=== PATIENT | male | born 1970 ===

== ENCOUNTER 2021-08-08 19:42 | Inpatient (IN) ==
[2021-08-08] MEDS ORDERED: ONDANSETRON 4 MG/2 ML VIAL IV STA (23:13)
[2021-08-08] MEDS ORDERED: KETOROLAC 30 MG/1 ML VIAL IV STA (23:13)
[2021-08-09] MEDS ORDERED: SODIUM CHLORIDE 0.9% 1,000 ML IV STA (00:14)
[2021-08-09 00:32] LABS: Albumin 3.4 G/DL (3.4-5.0); Bilirubin,Total 1.3 MG/DL (0.20-1.00); Calcium 9.7 MG/DL (8.5-10.1); Osmolality,Calculated 267.1 MOS/KG (273-304); Potassium 3.7 MMOL/L (3.5-5.1); Total Protein 7.3 G/DL (6.4-8.2)
[2021-08-09 00:49] LABS: Basophils % 0.1 % (0.0-0.8); Hematocrit 44.9 VOL% (42.0-52.0); Hemoglobin 14.5 GM/DL (14.0-18.0); Immature Granulocytes % 0.6 %; Immature Granulocytes Absolute 0.05 #; Lymphocytes # 1.2 10*3/uL (1.4-4.0); Lymphocytes % 14.3 % (21.2-54.2); Mean Corpuscular HGB Conc 32.3 GM/DL (32-36); Mean Platelet Volume 12.9 FL (9.6-12.0); NRBC # 0.02 10*3/uL; Platelet Count 113 T/CUMM (130-400); Red Blood Count 5.22 MC/CUMM (3.8-5.5); Red Cell Distribution Width 15.5 % (9.3-17.3); White Blood Count 8.1 T/CUMM (4-12)
[2021-08-09 01:15] LABS: Hyaline Casts,Urine 1 /LPF (0-3); Mucus,Urine Occasional /LPF (Occasional); Squamous Epithelial Cell,Urine Occasional /HPF (0-10)
[2021-08-09 01:16] LABS: Bilirubin,Urine Moderate mg/dL (Negative); Blood, Urine Negative (Negative); Glucose,Urine (UA) Negative (Negative); Ketones,Urine 40 mg/dL (Negative); Nitrite,Urine Negative (Negative); Protein,Urine Negative (Negative); Urine Appearance Clear (Clear); Urine Color Yellow (Yellow); Urine pH 5.5 (4.5-8.0)
[2021-08-09] MEDS ORDERED: SIMETHICONE CHEW 125 MG TABLET PO PRN (03:14)
[2021-08-09] MEDS ORDERED: ACETAMINOPHEN 325 MG TABLET PO PRN (03:14)
[2021-08-09] MEDS ORDERED: GLUCAGON 1 MG VIAL IM PRN (03:14)
[2021-08-09] MEDS ORDERED: DEXTROSE 10% 250 ML BAG IV PRN (03:52)
[2021-08-09 05:09] LABS: Hepatitis B Core IgM Quant 0.15 Index; Hepatitis B Surface Ag Quant < 0.10 Index; Hepatitis B Surface Ag Result Non-Reactive (NonReactive); Hepatitis C Virus Ab Quant < 0.02 Index; Hepatitis C Virus Ab Result Non-Reactive (NonReactive)
[2021-08-09] MEDS: SODIUM CHLORIDE 0.9% 1,000 ML IV SCH ×3 (05:18→21:26)
[2021-08-09] MEDS: ENOXAPARIN 40 MG/0.4 ML SYRINGE SUBCUT SCH (05:20)
[2021-08-09 07:16] LABS: Basophils % 0.3 % (0.0-0.8); Hematocrit 50.7 VOL% (42.0-52.0); Hemoglobin 16.1 GM/DL (14.0-18.0); Immature Granulocytes % 0.7 %; Immature Granulocytes Absolute 0.05 #; Lymphocytes # 1.2 10*3/uL (1.4-4.0); Lymphocytes % 16.6 % (21.2-54.2); Mean Corpuscular HGB Conc 31.8 GM/DL (32-36); Mean Corpuscular Volume 86.8 FL (87-102); Mean Platelet Volume 12.1 FL (9.6-12.0); Monocytes % 9.3 % (1.7-12.7); NRBC # 0.04 10*3/uL; Neutrophils % 73.1 % (38.7-73.9); Platelet Count 112 T/CUMM (130-400); Red Blood Count 5.84 MC/CUMM (3.8-5.5); Red Cell Distribution Width 17.7 % (9.3-17.3); White Blood Count 7.1 T/CUMM (4-12)
[2021-08-09 07:26] LABS: Bilirubin,Direct 0.1 MG/DL (0.0-0.20); Bilirubin,Total 1.1 MG/DL (0.20-1.00); Risk Ratio 2.54; Total Protein 6.9 G/DL (6.4-8.2); VLDL Cholesterol 17.6 MG/DL
[2021-08-09 07:36] LABS: INR 1.4; PT Patient Result 14.9 SECS (10.5-12.0); Partial Thromboplastin Time 34.2 SECS (23.8-32.1)
[2021-08-09 08:51] LABS: Folate 7.46 NG/ML (5.38-24.0); Vitamin B12 680 PG/ML (211-911)
[2021-08-09 08:53] LABS: Sedimentation Rate-Westergren 25 MM/HR (0-15)
[2021-08-09] MEDS ORDERED: PANTOPRAZOLE 40 MG TABLET PO SCH (09:00)
[2021-08-09 09:36] LABS: Hypochromia Slight; Microcytosis Slight; Platelet Estimate Adequate; Polychromasia Slight
[2021-08-09] MEDS ORDERED: MAGNESIUM SULF RIDER 2 GM/50 ML PREMIX IV ONE (09:44)
[2021-08-09] MEDS: DOCUSATE SODIUM 100 MG CAPSULE PO SCH ×2 (10:12→21:30)
[2021-08-09] MEDS: ONDANSETRON 4 MG/2 ML VIAL IV PRN ×2 (13:11→21:27)
[2021-08-09] MEDS ORDERED: SODIUM CHLORIDE 0.9% 500 ML IV ONE (19:01)
[2021-08-09] MEDS: PANTOPRAZOLE 40 MG VIAL IV SCH (21:27)
[2021-08-10 07:12] LABS: Basophils % 0.4 % (0.0-0.8); Eosinophils % 0.4 % (0.00-10.9); Hematocrit 37.8 VOL% (42.0-52.0); Immature Granulocytes % 0.7 %; Immature Granulocytes Absolute 0.04 #; Lymphocytes # 1.2 10*3/uL (1.4-4.0); Mean Corpuscular HGB Conc 32.3 GM/DL (32-36); Mean Corpuscular Volume 88.1 FL (87-102); Monocytes % 10.9 % (1.7-12.7); NRBC # 0.03 10*3/uL; Neutrophils % 65.6 % (38.7-73.9); Platelet Count 124 T/CUMM (130-400); Red Cell Distribution Width 15.9 % (9.3-17.3); White Blood Count 5.4 T/CUMM (4-12)
[2021-08-10 07:14] LABS: Hemoglobin 12.2 GM/DL (14.0-18.0); Red Blood Count 4.29 MC/CUMM (3.8-5.5)
[2021-08-10 07:32] LABS: Albumin 2.6 G/DL (3.4-5.0); Bilirubin,Total 1.3 MG/DL (0.20-1.00); Calcium 8.3 MG/DL (8.5-10.1); Osmolality,Calculated 274.5 MOS/KG (273-304); Total Protein 5.9 G/DL (6.4-8.2)
[2021-08-10 07:36] LABS: Anisocytosis 1+; Burr Cells Few; Platelet Estimate Adequate
[2021-08-10 07:37] LABS: Macrocytosis Slight
[2021-08-10] MEDS: LACTATED RINGERS 1,000 ML IV SCH (08:46)
[2021-08-10] MEDS ORDERED: ETOMIDATE 20 MG/10 ML VIAL IV ONE (08:46)
[2021-08-10] MEDS ORDERED: LIDOCAINE 2% 5 ML VIAL ONE (08:46)
[2021-08-10] MEDS ORDERED: propofoL 200 MG/20 ML VIAL IV ONE (08:46)
[2021-08-10] MEDS: DOCUSATE SODIUM 100 MG CAPSULE PO SCH ×2 (09:05→22:40)
[2021-08-10] MEDS: ENOXAPARIN 40 MG/0.4 ML SYRINGE SUBCUT SCH (10:10)
[2021-08-10] MEDS: PANTOPRAZOLE 40 MG VIAL IV SCH ×2 (10:10→22:19)
[2021-08-10] MEDS: SODIUM CHLORIDE 0.9% 1,000 ML IV SCH ×3 (10:10→15:26)
[2021-08-10] MEDS: ONDANSETRON 4 MG/2 ML VIAL IV PRN ×2 (10:15→23:43)
[2021-08-10] MEDS: POTASSIUM CHLORIDE RIDER 10 MEQ/100 ML PREMIX IV PRN ×5 (11:25→15:54)
[2021-08-10] MEDS ORDERED: PROMETHAZINE 25 MG SUPP RECTAL ONE (12:00)
[2021-08-10] MEDS ORDERED: PROMETHAZINE 12.5 MG SUPP RECTAL ONE (12:00)
[2021-08-11] MEDS: hydrALAZINE 20 MG/1 ML VIAL IV PRN (00:35)
[2021-08-11] MEDS ORDERED: HYDROmorphone 1 MG/1 ML SYRINGE IV ONE (01:52)
[2021-08-11] MEDS ORDERED: PROMETHAZINE INJ 25 MG in SODIUM CHLORIDE 0.9% 50 ML IV PRN (01:52)
[2021-08-11 02:44] LABS: Basophils % 0.5 % (0.0-0.8); Eosinophils % 0.5 % (0.00-10.9); Hematocrit 39.4 VOL% (42.0-52.0); Hemoglobin 12.6 GM/DL (14.0-18.0); Immature Granulocytes % 0.8 %; Immature Granulocytes Absolute 0.05 #; Lymphocytes # 1.7 10*3/uL (1.4-4.0); Lymphocytes % 26.3 % (21.2-54.2); Mean Corpuscular Volume 87.4 FL (87-102); Mean Platelet Volume 11.6 FL (9.6-12.0); Monocytes % 11.6 % (1.7-12.7); NRBC # 0.02 10*3/uL; Neutrophils % 60.3 % (38.7-73.9); Platelet Count 171 T/CUMM (130-400); Red Blood Count 4.51 MC/CUMM (3.8-5.5); Red Cell Distribution Width 15.9 % (9.3-17.3); White Blood Count 6.6 T/CUMM (4-12)
[2021-08-11 02:53] LABS: Bilirubin,Total 1.1 MG/DL (0.20-1.00); Calcium 8.3 MG/DL (8.5-10.1); Osmolality,Calculated 266.1 MOS/KG (273-304); Potassium 2.9 MMOL/L (3.5-5.1); Total Protein 6.4 G/DL (6.4-8.2)
[2021-08-11] MEDS ORDERED: MAGNESIUM SULF RIDER 2 GM/50 ML PREMIX IV PRN (02:56)
[2021-08-11] MEDS ORDERED: MAGNESIUM SULF RIDER 4 GM/100 ML PREMIX IV PRN (02:56)
[2021-08-11] MEDS: ENOXAPARIN 40 MG/0.4 ML SYRINGE SUBCUT SCH (09:57)
[2021-08-11] MEDS: SODIUM CHLORIDE 0.9% 1,000 ML IV SCH ×2 (09:57→20:30)
[2021-08-11] MEDS: PANTOPRAZOLE 40 MG VIAL IV SCH ×2 (09:57→20:30)
[2021-08-11] MEDS: LACTATED RINGERS 1,000 ML IV SCH (09:57)
[2021-08-11] MEDS: DOCUSATE SODIUM 100 MG CAPSULE PO SCH ×2 (09:57→20:30)
[2021-08-11] MEDS: POTASSIUM CHLORIDE RIDER 10 MEQ/100 ML PREMIX IV PRN ×5 (10:32→15:40)
[2021-08-12 07:01] LABS: Albumin 2.5 G/DL (3.4-5.0); Bilirubin,Total 1.2 MG/DL (0.20-1.00); Calcium 8.2 MG/DL (8.5-10.1); Osmolality,Calculated 263.2 MOS/KG (273-304); Potassium 3.8 MMOL/L (3.5-5.1); Total Protein 5.5 G/DL (6.4-8.2)
[2021-08-12] MEDS: LACTATED RINGERS 1,000 ML IV SCH (07:28)
[2021-08-12] MEDS: SODIUM CHLORIDE 0.9% 1,000 ML IV SCH ×2 (10:17→21:42)
[2021-08-12] MEDS: DOCUSATE SODIUM 100 MG CAPSULE PO SCH ×2 (10:18→21:42)
[2021-08-12] MEDS: ENOXAPARIN 40 MG/0.4 ML SYRINGE SUBCUT SCH (10:18)
[2021-08-12] MEDS: PANTOPRAZOLE 40 MG VIAL IV SCH ×2 (10:18→21:42)
[2021-08-12 10:38] LABS: Basophils % 0.6 % (0.0-0.8); Eosinophils % 0.6 % (0.00-10.9); Hematocrit 39.7 VOL% (42.0-52.0); Immature Granulocytes % 0.4 %; Immature Granulocytes Absolute 0.02 #; Lymphocytes # 1.2 10*3/uL (1.4-4.0); Lymphocytes % 25.1 % (21.2-54.2); Mean Corpuscular HGB Conc 32.7 GM/DL (32-36); Mean Corpuscular Volume 86.3 FL (87-102); Mean Platelet Volume 12.1 FL (9.6-12.0); Monocytes % 8.8 % (1.7-12.7); Neutrophils % 64.5 % (38.7-73.9); Platelet Count 99 T/CUMM (130-400); Red Cell Distribution Width 15.9 % (9.3-17.3); White Blood Count 4.7 T/CUMM (4-12)
[2021-08-12 10:56] LABS: Platelet Estimate Decreased
[2021-08-12] MEDS: ONDANSETRON 4 MG/2 ML VIAL IV PRN (21:42)
[2021-08-13 05:19] LABS: Basophils % 0.6 % (0.0-0.8); Eosinophils # 0.1 10*3/uL (0.0-0.87); Eosinophils % 1.3 % (0.00-10.9); Hematocrit 38.4 VOL% (42.0-52.0); Hemoglobin 12.4 GM/DL (14.0-18.0); Immature Granulocytes % 1.3 %; Immature Granulocytes Absolute 0.06 #; Lymphocytes # 1.5 10*3/uL (1.4-4.0); Lymphocytes % 30.3 % (21.2-54.2); Mean Corpuscular HGB Conc 32.3 GM/DL (32-36); Mean Corpuscular Volume 85.9 FL (87-102); Mean Platelet Volume 11.7 FL (9.6-12.0); Monocytes % 10.4 % (1.7-12.7); NRBC # 0.02 10*3/uL; Neutrophils % 56.1 % (38.7-73.9); Platelet Count 157 T/CUMM (130-400); Red Blood Count 4.47 MC/CUMM (3.8-5.5); Red Cell Distribution Width 15.7 % (9.3-17.3); White Blood Count 4.8 T/CUMM (4-12)
[2021-08-13 05:43] LABS: Albumin 2.7 G/DL (3.4-5.0); Bilirubin,Total 1.6 MG/DL (0.20-1.00); Calcium 8.7 MG/DL (8.5-10.1); Osmolality,Calculated 261.4 MOS/KG (273-304); Potassium 3.5 MMOL/L (3.5-5.1); Total Protein 5.9 G/DL (6.4-8.2)
[2021-08-13] MEDS: ONDANSETRON 4 MG/2 ML VIAL IV PRN (07:15)
[2021-08-13] MEDS: hydrALAZINE 20 MG/1 ML VIAL IV PRN (07:15)
[2021-08-13] MEDS ORDERED: MAGNESIUM SULF RIDER 4 GM/100 ML PREMIX IV ONE (08:00)
[2021-08-13] MEDS: PANTOPRAZOLE 40 MG VIAL IV SCH (09:37)
[2021-08-13] MEDS: LACTATED RINGERS 1,000 ML IV SCH (10:11)
[2021-08-13] MEDS: DOCUSATE SODIUM 100 MG CAPSULE PO SCH ×2 (10:12→20:38)
[2021-08-13] MEDS: HYDROmorphone 1 MG/1 ML SYRINGE IV PRN (10:39)
[2021-08-13] MEDS: SODIUM CHLORIDE 0.9% 1,000 ML IV SCH ×2 (12:28→13:52)
[2021-08-13] MEDS: PIPERACILLIN/TAZOBACTAM 3,375 MG in SODIUM CHLORIDE 0.9% 100 ML IV SCH (13:53)
[2021-08-13] MEDS: ZIPRASIDONE 20 MG CAPSULE PO SCH (20:38)
[2021-08-14] MEDS ORDERED: MORPHINE 2 MG/1 ML SYRINGE IM ONE (00:50)
[2021-08-14] MEDS: PIPERACILLIN/TAZOBACTAM 3,375 MG in SODIUM CHLORIDE 0.9% 100 ML IV SCH ×4 (00:58→23:16)
[2021-08-14] MEDS: PANTOPRAZOLE 40 MG VIAL IV SCH ×3 (00:59→21:02)
[2021-08-14 07:24] LABS: Basophils % 0.4 % (0.0-0.8); Eosinophils # 0.1 10*3/uL (0.0-0.87); Eosinophils % 1.5 % (0.00-10.9); Hematocrit 40.3 VOL% (42.0-52.0); Hemoglobin 12.9 GM/DL (14.0-18.0); Immature Granulocytes % 0.4 %; Immature Granulocytes Absolute 0.02 #; Lymphocytes # 1.2 10*3/uL (1.4-4.0); Lymphocytes % 24.6 % (21.2-54.2); Mean Corpuscular Volume 85.9 FL (87-102); Mean Platelet Volume 10.8 FL (9.6-12.0); Monocytes % 7.6 % (1.7-12.7); NRBC # 0.02 10*3/uL; Neutrophils % 65.5 % (38.7-73.9); Platelet Count 183 T/CUMM (130-400); Red Blood Count 4.69 MC/CUMM (3.8-5.5); White Blood Count 4.8 T/CUMM (4-12)
[2021-08-14 07:37] LABS: PT Patient Result 11.5 SECS (10.5-12.0)
[2021-08-14 07:42] LABS: Albumin 2.7 G/DL (3.4-5.0); Bilirubin,Total 1.5 MG/DL (0.20-1.00); Calcium 8.6 MG/DL (8.5-10.1); Osmolality,Calculated 263.2 MOS/KG (273-304); Potassium 3.1 MMOL/L (3.5-5.1); Total Protein 6.4 G/DL (6.4-8.2)
[2021-08-14] MEDS ORDERED: INDOMETHACIN SUPP 50 MG SUPP RECTAL ONE (08:00)
[2021-08-14] MEDS: HYDROmorphone 1 MG/1 ML SYRINGE IV PRN (09:25)
[2021-08-14] MEDS: SPIRONOLACTONE 25 MG TABLET PO SCH (09:42)
[2021-08-14] MEDS: METOPROLOL SUCCINATE XL 100 MG TABLET PO SCH (09:43)
[2021-08-14] MEDS: OXYBUTYNIN XL 10 MG TABLET PO SCH (09:43)
[2021-08-14] MEDS: MAGNESIUM OXIDE 400 MG TABLET PO SCH (09:43)
[2021-08-14] MEDS: DOCUSATE SODIUM 100 MG CAPSULE PO SCH ×2 (09:43→21:01)
[2021-08-14] MEDS: ZIPRASIDONE 20 MG CAPSULE PO SCH ×3 (09:43→22:24)
[2021-08-14] MEDS: SODIUM CHLORIDE 0.9% 1,000 ML IV SCH ×4 (09:44→23:21)
[2021-08-14] MEDS: LACTATED RINGERS 1,000 ML IV SCH ×2 (11:39→13:46)
[2021-08-14] MEDS ORDERED: SEVOFLURANE 1 UNIT/15 MINUTE INH ONE (11:59)
[2021-08-14] MEDS ORDERED: ONDANSETRON 4 MG/2 ML VIAL ONE (11:59)
[2021-08-14] MEDS ORDERED: ROCURONIUM 50 MG/5 ML VIAL IV ONE (11:59)
[2021-08-14] MEDS ORDERED: fentaNYL 100 MCG/2 ML VIAL ONE (11:59)
[2021-08-14] MEDS ORDERED: propofoL 200 MG/20 ML VIAL IV ONE (11:59)
[2021-08-14] MEDS ORDERED: LIDOCAINE 2% 5 ML VIAL ONE (11:59)
[2021-08-14] MEDS ORDERED: MIDAZOLAM 2 MG/2 ML VIAL ONE (12:02)
[2021-08-14] MEDS ORDERED: METOPROLOL TARTRATE 5 MG/5 ML VIAL IV ONE (12:34)
[2021-08-14] MEDS ORDERED: PHENYLEPHRINE 1 MG/10 ML SYRINGE IV ONE ×2 (12:40→12:41)
[2021-08-14] MEDS ORDERED: PHENYLEPHRINE 10 MG/1 ML VIAL IV ONE (12:44)
[2021-08-14] MEDS ORDERED: SODIUM CHLORIDE 0.9% 250 ML IV ONE (12:45)
[2021-08-14] MEDS ORDERED: SUGAMMADEX 200 MG/2 ML VIAL IV ONE (12:50)
[2021-08-14] MEDS ORDERED: GLUCAGON 1 MG VIAL ONE (13:03)
[2021-08-14] MEDS: POTASSIUM CHLORIDE RIDER 10 MEQ/100 ML PREMIX IV PRN ×4 (15:55→21:22)
[2021-08-15] MEDS: SODIUM CHLORIDE 0.9% 1,000 ML IV SCH ×2 (06:52→15:12)
[2021-08-15] MEDS: PIPERACILLIN/TAZOBACTAM 3,375 MG in SODIUM CHLORIDE 0.9% 100 ML IV SCH ×3 (08:50→23:48)
[2021-08-15] MEDS: PANTOPRAZOLE 40 MG VIAL IV SCH ×2 (08:51→20:40)
[2021-08-15] MEDS: MAGNESIUM OXIDE 400 MG TABLET PO SCH (08:51)
[2021-08-15] MEDS: METOPROLOL SUCCINATE XL 100 MG TABLET PO SCH (08:51)
[2021-08-15] MEDS: DOCUSATE SODIUM 100 MG CAPSULE PO SCH ×2 (08:51→20:36)
[2021-08-15] MEDS: SPIRONOLACTONE 25 MG TABLET PO SCH (08:51)
[2021-08-15] MEDS: OXYBUTYNIN XL 10 MG TABLET PO SCH (08:51)
[2021-08-15] MEDS: ZIPRASIDONE 20 MG CAPSULE PO SCH ×2 (08:51→20:36)
[2021-08-15 11:50] LABS: Basophils % 0.4 % (0.0-0.8); Eosinophils % 0.3 % (0.00-10.9); Hemoglobin 13.6 GM/DL (14.0-18.0); Immature Granulocytes % 0.7 %; Immature Granulocytes Absolute 0.05 #; Lymphocytes # 0.7 10*3/uL (1.4-4.0); Lymphocytes % 9.8 % (21.2-54.2); Mean Corpuscular HGB Conc 31.6 GM/DL (32-36); Mean Platelet Volume 10.9 FL (9.6-12.0); Monocytes % 6.4 % (1.7-12.7); NRBC # 0.06 10*3/uL; Neutrophils % 82.4 % (38.7-73.9); Platelet Count 191 T/CUMM (130-400); Red Blood Count 4.94 MC/CUMM (3.8-5.5); Red Cell Distribution Width 16.6 % (9.3-17.3); White Blood Count 7.4 T/CUMM (4-12)
[2021-08-15 12:42] LABS: Albumin 2.6 G/DL (3.4-5.0); Bilirubin,Total 4.4 MG/DL (0.20-1.00); Osmolality,Calculated 263.4 MOS/KG (273-304); Potassium 4.4 MMOL/L (3.5-5.1); Total Protein 6.6 G/DL (6.4-8.2)
[2021-08-15] MEDS: LACTATED RINGERS 1,000 ML IV SCH (19:50)
[2021-08-16] MEDS: SODIUM CHLORIDE 0.9% 1,000 ML IV SCH ×3 (04:42→20:33)
[2021-08-16 06:25] LABS: Alanine Aminotransferase 339 U/L (16-61); Albumin 2.1 G/DL (3.4-5.0); Alkaline Phosphatase 88 U/L (45-117); Aspartate Amino Transferase 363 U/L (0-37); Blood Urea Nitrogen 12 MG/DL (7-18); Calcium 8.3 MG/DL (8.5-10.1); Carbon Dioxide 20 MMOL/L (21-32); Estimated Glom Filtration Rate 83 ML/MIN; Glucose 101 MG/DL (74-106); Osmolality,Calculated 269.1 MOS/KG (273-304); Potassium 4.9 MMOL/L (3.5-5.1); Sodium 135 MMOL/L (136-145); Total Protein 5.8 G/DL (6.4-8.2)
[2021-08-16] MEDS: PIPERACILLIN/TAZOBACTAM 3,375 MG in SODIUM CHLORIDE 0.9% 100 ML IV SCH ×3 (08:10→23:58)
[2021-08-16] MEDS: LACTATED RINGERS 1,000 ML IV SCH ×2 (08:10→08:22)
[2021-08-16] MEDS: METOPROLOL SUCCINATE XL 100 MG TABLET PO SCH (09:58)
[2021-08-16] MEDS: DOCUSATE SODIUM 100 MG CAPSULE PO SCH ×3 (09:58→20:35)
[2021-08-16] MEDS: OXYBUTYNIN XL 10 MG TABLET PO SCH (09:59)
[2021-08-16] MEDS: MAGNESIUM OXIDE 400 MG TABLET PO SCH (09:59)
[2021-08-16] MEDS: ZIPRASIDONE 20 MG CAPSULE PO SCH ×2 (10:01→20:35)
[2021-08-16] MEDS: SPIRONOLACTONE 25 MG TABLET PO SCH (10:01)
[2021-08-16] MEDS ORDERED: MAGNESIUM SULF RIDER 4 GM/100 ML PREMIX IV ONE (10:10)
[2021-08-16] MEDS: PANTOPRAZOLE 40 MG VIAL IV SCH ×2 (10:41→20:34)
[2021-08-17] MEDS: SODIUM CHLORIDE 0.9% 1,000 ML IV SCH ×3 (05:50→15:03)
[2021-08-17 06:22] LABS: RBC,Urine 7 /HPF (0-4); Squamous Epithelial Cell,Urine Occasional /HPF (0-10)
[2021-08-17 06:23] LABS: Bilirubin,Urine Large mg/dL (Negative); Blood, Urine Trace mg/dL (Negative); Glucose,Urine (UA) Negative (Negative); Ketones,Urine 15 mg/dL (Negative); Nitrite,Urine Positive (Negative); Protein,Urine 100 mg/dL (Negative); Urine Appearance Cloudy (Clear); Urine Color Amber (Yellow); Urine Specific Gravity > 1.030 (1.001-1.035)
[2021-08-17 07:06] LABS: Basophils % 0.2 % (0.0-0.8); Hematocrit 39.1 VOL% (42.0-52.0); Hemoglobin 12.5 GM/DL (14.0-18.0); Immature Granulocytes % 0.8 %; Lymphocytes % 7.1 % (21.2-54.2); Mean Corpuscular Volume 85.7 FL (87-102); Mean Platelet Volume 11.9 FL (9.6-12.0); NRBC # 0.08 10*3/uL; Neutrophils % 87.9 % (38.7-73.9); Platelet Count 149 T/CUMM (130-400); Red Blood Count 4.56 MC/CUMM (3.8-5.5); Red Cell Distribution Width 17.2 % (9.3-17.3); White Blood Count 13.3 T/CUMM (4-12)
[2021-08-17 07:24] LABS: Bilirubin,Total 1.6 MG/DL (0.20-1.00); Calcium 7.9 MG/DL (8.5-10.1); Osmolality,Calculated 272.8 MOS/KG (273-304); Potassium 3.9 MMOL/L (3.5-5.1); Total Protein 5.7 G/DL (6.4-8.2)
[2021-08-17 07:41] LABS: Band Neutrophils 6 % (0-10); Lymphocytes 5 % (20-55); Platelet Estimate Adequate; Segmented Neutrophils 82 % (50-85); Total Cells Counted 100
[2021-08-17] MEDS: LACTATED RINGERS 1,000 ML IV SCH ×2 (08:14→19:25)
[2021-08-17] MEDS: DOCUSATE SODIUM 100 MG CAPSULE PO SCH ×2 (08:56→22:00)
[2021-08-17] MEDS: MAGNESIUM OXIDE 400 MG TABLET PO SCH (08:56)
[2021-08-17] MEDS: ZIPRASIDONE 20 MG CAPSULE PO SCH ×2 (08:57→22:00)
[2021-08-17] MEDS: PIPERACILLIN/TAZOBACTAM 3,375 MG in SODIUM CHLORIDE 0.9% 100 ML IV SCH ×2 (09:11→15:02)
[2021-08-17] MEDS: PANTOPRAZOLE 40 MG VIAL IV SCH ×2 (09:11→22:00)
[2021-08-17] MEDS: SPIRONOLACTONE 25 MG TABLET PO SCH (10:46)
[2021-08-17] MEDS: OXYBUTYNIN XL 10 MG TABLET PO SCH (10:46)
[2021-08-17] MEDS: METOPROLOL SUCCINATE XL 100 MG TABLET PO SCH (10:47)
[2021-08-17] MEDS ORDERED: ONDANSETRON 4 MG/2 ML VIAL ONE (11:03)
[2021-08-17] MEDS ORDERED: MIDAZOLAM 2 MG/2 ML VIAL ONE (11:03)
[2021-08-17] MEDS ORDERED: LIDOCAINE 2% 5 ML VIAL ONE (11:03)
[2021-08-17] MEDS ORDERED: fentaNYL 100 MCG/2 ML VIAL ONE ×3 (11:03→16:05)
[2021-08-17] MEDS ORDERED: propofoL 200 MG/20 ML VIAL IV ONE ×2 (11:03→12:24)
[2021-08-17] MEDS ORDERED: PHENYLEPHRINE 10 MG/1 ML VIAL IV ONE (15:36)
[2021-08-17] MEDS ORDERED: SODIUM CHLORIDE 0.9% 250 ML IV ONE (15:36)
[2021-08-17] MEDS ORDERED: LIDOCAINE 2% TOP JELLY 20 ML VIAL INTRAURETH ONE (15:36)
[2021-08-17] MEDS ORDERED: TUBERCULIN SKIN TEST 0.1 ML SYRINGE INTRADERM ONE (16:00)
[2021-08-17] MEDS ORDERED: METOPROLOL TARTRATE 5 MG/5 ML VIAL IV ONE (16:07)
[2021-08-17] MEDS ORDERED: SEVOFLURANE 1 UNIT/15 MINUTE INH ONE (17:17)
[2021-08-17] MEDS ORDERED: NEOSTIGMINE 10 MG/10 ML VIAL ONE (17:17)
[2021-08-17] MEDS ORDERED: GLYCOPYRROLATE 0.4 MG/2 ML VIAL ONE (17:17)
[2021-08-17] MEDS ORDERED: HYDROmorphone 1 MG/1 ML SYRINGE ONE (17:26)
[2021-08-17] MEDS: NALOXONE 0.4 MG/ML VIAL IV PRN ×2 (22:11→22:53)
[2021-08-17 22:25] LABS: Arterial Base Excess iSTAT -16 MMOL/L (-2.5-2.5); Arterial Bicarbonate iSTAT 10.1 MMOL/L (20-26); Arterial O2 Saturation iSTAT 100 % (95-100); Arterial PCO2 iSTAT 23 MM HG (35-48); Arterial PO2 iSTAT 451 MM HG (80-95); Arterial Total CO2 iSTAT 11 MMO/L (23-27); Arterial pH iSTAT 7.241 (7.35-7.45)
[2021-08-17] MEDS ORDERED: SODIUM BICARBONATE 50 MEQ/50 ML VIAL IV ONE ×2 (22:50→22:55)
[2021-08-17 22:51] LABS: Basophils % 0.2 % (0.0-0.8); Hematocrit 33.4 VOL% (42.0-52.0); Hemoglobin 10.2 GM/DL (14.0-18.0); Immature Granulocytes % 1.4 %; Immature Granulocytes Absolute 0.18 #; Lymphocytes # 1.2 10*3/uL (1.4-4.0); Lymphocytes % 9.2 % (21.2-54.2); Mean Corpuscular HGB Conc 30.5 GM/DL (32-36); Mean Corpuscular Volume 92.8 FL (87-102); Mean Platelet Volume 10.9 FL (9.6-12.0); Monocytes % 3.7 % (1.7-12.7); NRBC # 0.35 10*3/uL; Neutrophils % 85.5 % (38.7-73.9); Platelet Count 154 T/CUMM (130-400); Red Cell Distribution Width 17.8 % (9.3-17.3); White Blood Count 13.2 T/CUMM (4-12)
[2021-08-17 23:12] LABS: Albumin 1.7 G/DL (3.4-5.0); Calcium 7.1 MG/DL (8.5-10.1); Osmolality,Calculated 277.7 MOS/KG (273-304); Total Protein 5.2 G/DL (6.4-8.2)
[2021-08-17 23:25] LABS: Lymphocytes 7 % (20-55); Platelet Estimate Adequate; Polychromasia 1+; Segmented Neutrophils 91 % (50-85); Total Cells Counted 100
[2021-08-17 23:27] LABS: Burr Cells 1+
[2021-08-18] MEDS ORDERED: NOREPINEPHRINE 4 MG/4 ML VIAL IV ONE ×3 (00:09→11:04)
[2021-08-18] MEDS ORDERED: SODIUM BICARBONATE 50 MEQ/50 ML VIAL IV ONE ×3 (00:09→04:32)
[2021-08-18] MEDS ORDERED: ETOMIDATE 20 MG/10 ML VIAL IV ONE ×2 (00:13→00:19)
[2021-08-18] MEDS ORDERED: ROCURONIUM 100 MG/10 ML VIAL IV ONE ×2 (00:13→00:20)
[2021-08-18] MEDS ORDERED: MIDAZOLAM 100 MG in SODIUM CHLORIDE 0.9% 80 ML IV PRN (00:28)
[2021-08-18] MEDS: NOREPINEPHRINE 8 MG in SODIUM CHLORIDE 0.9% 242 ML IV PRN ×5 (00:55→14:30)
[2021-08-18 01:17] LABS: ABG Base Excess -17.6 MMOL/L (-2.5-2.5); ABG HCO3 11.3 MMOL/L (20-26); ABG Oxygen Saturation 99.1 % (95-100); ABG PCO2 35.8 MM HG (35-48); ABG TCO2 10.8 MMOL/L (23-27)
[2021-08-18 01:18] LABS: ABG PH 7.107 (7.35-7.45)
[2021-08-18] MEDS: LACTATED RINGERS 1,000 ML IV SCH ×2 (01:29→09:24)
[2021-08-18] MEDS ORDERED: SODIUM CHLORIDE 0.9% 1,000 ML IV ONE (01:34)
[2021-08-18] MEDS: PIPERACILLIN/TAZOBACTAM 3,375 MG in SODIUM CHLORIDE 0.9% 100 ML IV SCH ×2 (01:41→08:17)
[2021-08-18] MEDS ORDERED: LEVOFLOXACIN INJ 750 MG/150 ML PREMIX IV SCH (02:00)
[2021-08-18 04:24] LABS: ABG Base Excess -18.7 MMOL/L (-2.5-2.5); ABG HCO3 10.6 MMOL/L (20-26); ABG Oxygen Saturation 99.1 % (95-100); ABG PCO2 40.5 MM HG (35-48); ABG TCO2 10.9 MMOL/L (23-27)
[2021-08-18 04:25] LABS: Basophils # 0.1 10*3/uL (0.0-0.2); Basophils % 0.3 % (0.0-0.8); Hemoglobin 9.4 GM/DL (14.0-18.0); Immature Granulocytes % 1.6 %; Immature Granulocytes Absolute 0.25 #; Lymphocytes # 1.7 10*3/uL (1.4-4.0); Lymphocytes % 10.5 % (21.2-54.2); Mean Corpuscular HGB Conc 29.4 GM/DL (32-36); Mean Platelet Volume 11.3 FL (9.6-12.0); NRBC # 0.47 10*3/uL; Neutrophils % 83.6 % (38.7-73.9); Platelet Count 177 T/CUMM (130-400); Red Blood Count 3.37 MC/CUMM (3.8-5.5); Red Cell Distribution Width 18.1 % (9.3-17.3); White Blood Count 15.7 T/CUMM (4-12)
[2021-08-18 04:44] LABS: Band Neutrophils 2 % (0-10); Lymphocytes 9 % (20-55); Nucleated Red Blood Cells 3 (0-5); Segmented Neutrophils 84 % (50-85); Total Cells Counted 100
[2021-08-18 04:45] LABS: Hypochromia 1+; Microcytosis 1+; Platelet Estimate Adequate
[2021-08-18 04:53] LABS: Albumin 1.6 G/DL (3.4-5.0); Bilirubin,Total 0.9 MG/DL (0.20-1.00); Calcium 6.7 MG/DL (8.5-10.1); Osmolality,Calculated 281.4 MOS/KG (273-304); Potassium 4.7 MMOL/L (3.5-5.1)
[2021-08-18] MEDS ORDERED: SODIUM BICARB INJ 100 MEQ in STERILE WATER INJ 1,000 ML IV SCH (05:00)
[2021-08-18] MEDS ORDERED: SODIUM CHLORIDE 0.9% 1,000 ML IV SCH (07:00)
[2021-08-18] MEDS ORDERED: LACTATED RINGERS 1,000 ML IV ONE (07:35)
[2021-08-18] MEDS: SODIUM CHLORIDE 0.9% 1,000 ML IV SCH (08:10)
[2021-08-18] MEDS: PANTOPRAZOLE 40 MG VIAL IV SCH ×2 (08:17→21:35)
[2021-08-18] MEDS ORDERED: LACTATED RINGERS 500 ML IV ONE (08:40)
[2021-08-18] MEDS: DOCUSATE SODIUM 100 MG CAPSULE PO SCH ×2 (08:41→21:35)
[2021-08-18] MEDS: MAGNESIUM OXIDE 400 MG TABLET PO SCH (08:41)
[2021-08-18] MEDS: OXYBUTYNIN XL 10 MG TABLET PO SCH (08:41)
[2021-08-18] MEDS: METOPROLOL SUCCINATE XL 100 MG TABLET PO SCH (08:42)
[2021-08-18] MEDS ORDERED: TUBERCULIN SKIN TEST 0.1 ML SYRINGE INTRADERM ONE (09:00)
[2021-08-18] MEDS ORDERED: SODIUM BICARBONATE 50 MEQ/50 ML SYRINGE IV ONE (09:30)
[2021-08-18 10:37] LABS: Basophils % 0.2 % (0.0-0.8); Hematocrit 27.6 VOL% (42.0-52.0); Hemoglobin 8.4 GM/DL (14.0-18.0); Immature Granulocytes % 1.8 %; Immature Granulocytes Absolute 0.26 #; Lymphocytes # 1.6 10*3/uL (1.4-4.0); Lymphocytes % 11.2 % (21.2-54.2); Mean Corpuscular HGB Conc 30.4 GM/DL (32-36); Mean Platelet Volume 11.1 FL (9.6-12.0); Monocytes % 4.7 % (1.7-12.7); NRBC # 0.33 10*3/uL; Neutrophils % 82.1 % (38.7-73.9); Platelet Count 146 T/CUMM (130-400); Red Cell Distribution Width 18.2 % (9.3-17.3); White Blood Count 14.4 T/CUMM (4-12)
[2021-08-18] MEDS ORDERED: VANCOMYCIN INJ 2,000 MG in SODIUM CHLORIDE 0.9% 500 ML IV PRN (10:47)
[2021-08-18 10:50] LABS: ABG Base Excess -11.9 MMOL/L (-2.5-2.5); ABG HCO3 15.3 MMOL/L (20-26); ABG Oxygen Saturation 99.2 % (95-100); ABG PCO2 43.2 MM HG (35-48); ABG TCO2 14.9 MMOL/L (23-27)
[2021-08-18 10:53] LABS: ABG PH 7.185 (7.35-7.45)
[2021-08-18 10:55] LABS: Band Neutrophils 5 % (0-10); Lymphocytes 11 % (20-55); Nucleated Red Blood Cells 1 (0-5); Segmented Neutrophils 80 % (50-85); Total Cells Counted 100
[2021-08-18] MEDS: SODIUM BICARB INJ 150 MEQ in STERILE WATER INJ 850 ML IV SCH ×2 (10:55→21:00)
[2021-08-18 10:56] LABS: Burr Cells Slight; Hypochromia 1+; Microcytosis 1+; Platelet Estimate Adequate
[2021-08-18] MEDS: MEROPENEM 500 MG in SODIUM CHLORIDE 0.9% 100 ML IV SCH ×2 (11:13→23:30)
[2021-08-18] MEDS ORDERED: ALBUMIN 5% 25 GM/500 ML VIAL IV ONE (11:37)
[2021-08-18] MEDS ORDERED: VANCOMYCIN INJ 2,000 MG in SODIUM CHLORIDE 0.9% 500 ML IV ONE (12:00)
[2021-08-18 12:54] LABS: ABG Base Excess -12.8 MMOL/L (-2.5-2.5); ABG HCO3 14.4 MMOL/L (20-26); ABG Oxygen Saturation 99.4 % (95-100); ABG PCO2 36.1 MM HG (35-48); ABG TCO2 13.5 MMOL/L (23-27)
[2021-08-18 12:56] LABS: ABG PH 7.206 (7.35-7.45)
[2021-08-18 13:21] LABS: Calcium 6.1 MG/DL (8.5-10.1); Osmolality,Calculated 283.4 MOS/KG (273-304); Potassium 4.4 MMOL/L (3.5-5.1)
[2021-08-18] MEDS: PHENYLEPHRINE DRIP 40 MG/250 ML PREMIX IV PRN ×3 (14:15→23:19)
[2021-08-18 15:22] LABS: ABG HCO3 14.9 MMOL/L (20-26); ABG Oxygen Saturation 99.5 % (95-100); ABG PCO2 35.8 MM HG (35-48); ABG PH 7.225 (7.35-7.45); ABG TCO2 14.1 MMOL/L (23-27)
[2021-08-18 15:40] LABS: Bilirubin,Total 1.1 MG/DL (0.20-1.00); Osmolality,Calculated 283.4 MOS/KG (273-304); Potassium 4.2 MMOL/L (3.5-5.1); Total Protein 4.9 G/DL (6.4-8.2)
[2021-08-18 16:08] LABS: Basophils % 0.3 % (0.0-0.8); Hematocrit 24.5 VOL% (42.0-52.0); Hemoglobin 7.5 GM/DL (14.0-18.0); Immature Granulocytes % 1.5 %; Immature Granulocytes Absolute 0.18 #; Lymphocytes # 1.3 10*3/uL (1.4-4.0); Lymphocytes % 10.8 % (21.2-54.2); Mean Corpuscular HGB Conc 30.6 GM/DL (32-36); Mean Corpuscular Volume 92.1 FL (87-102); Mean Platelet Volume 11.4 FL (9.6-12.0); Monocytes % 3.9 % (1.7-12.7); NRBC # 0.26 10*3/uL; Neutrophils % 83.5 % (38.7-73.9); Platelet Count 118 T/CUMM (130-400); Red Blood Count 2.66 MC/CUMM (3.8-5.5); Red Cell Distribution Width 18.5 % (9.3-17.3); White Blood Count 11.9 T/CUMM (4-12)
[2021-08-18] MEDS ORDERED: SODIUM CHLORIDE 0.9% 1,000 ML IV PRN (16:40)
[2021-08-19] MEDS: PHENYLEPHRINE DRIP 40 MG/250 ML PREMIX IV PRN ×2 (02:13→08:15)
[2021-08-19 03:38] LABS: Basophils % 0.2 % (0.0-0.8); Eosinophils % 0.1 % (0.00-10.9); Hematocrit 26.2 VOL% (42.0-52.0); Immature Granulocytes % 1.2 %; Lymphocytes # 0.7 10*3/uL (1.4-4.0); Lymphocytes % 9.1 % (21.2-54.2); Mean Corpuscular HGB Conc 30.5 GM/DL (32-36); Mean Corpuscular Volume 92.9 FL (87-102); Mean Platelet Volume 11.4 FL (9.6-12.0); Monocytes % 4.7 % (1.7-12.7); NRBC # 0.21 10*3/uL; Neutrophils % 84.7 % (38.7-73.9); Platelet Count 97 T/CUMM (130-400); Red Blood Count 2.82 MC/CUMM (3.8-5.5); Red Cell Distribution Width 17.3 % (9.3-17.3)
[2021-08-19 03:53] LABS: Albumin 1.7 G/DL (3.4-5.0); Osmolality,Calculated 282.4 MOS/KG (273-304); Potassium 3.7 MMOL/L (3.5-5.1); Total Protein 4.4 G/DL (6.4-8.2)
[2021-08-19 03:55] LABS: Calcium 5.4 MG/DL (8.5-10.1)
[2021-08-19 03:57] LABS: Lymphocytes 11 % (20-55); Nucleated Red Blood Cells 5 (0-5); Segmented Neutrophils 86 % (50-85); Total Cells Counted 100
[2021-08-19 03:58] LABS: Hypochromia 1+; Microcytosis 1+; Platelet Estimate Decreased
[2021-08-19] MEDS ORDERED: CALCIUM CHLORIDE 1,000 MG/10 ML SYRINGE IV STA (04:17)
[2021-08-19 04:18] LABS: ABG Base Excess -4.8 MMOL/L (-2.5-2.5); ABG HCO3 19.8 MMOL/L (20-26); ABG Oxygen Saturation 98.7 % (95-100); ABG PCO2 34.1 MM HG (35-48); ABG PH 7.381 (7.35-7.45); ABG PO2 216.3 MM HG (80-95); ABG TCO2 20.8 MMOL/L (23-27)
[2021-08-19] MEDS: LACTATED RINGERS 1,000 ML IV SCH ×2 (05:00→15:53)
[2021-08-19] MEDS: SODIUM BICARB INJ 150 MEQ in STERILE WATER INJ 850 ML IV SCH ×2 (07:01→15:53)
[2021-08-19] MEDS ORDERED: CALCIUM CHLORIDE 1,000 MG/10 ML SYRINGE IV ONE (07:08)
[2021-08-19] MEDS ORDERED: SODIUM CHLORIDE 0.9% 1,000 ML IV PRN (07:13)
[2021-08-19] MEDS ORDERED: PHENYLEPHRINE DRIP 40 MG/250 ML PREMIX IV ONE (08:20)
[2021-08-19] MEDS: METOPROLOL SUCCINATE XL 100 MG TABLET PO SCH (09:32)
[2021-08-19] MEDS: MAGNESIUM OXIDE 400 MG TABLET PO SCH (09:32)
[2021-08-19] MEDS: DOCUSATE SODIUM 100 MG/10 ML UDCUP NG SCH ×2 (10:19→20:12)
[2021-08-19] MEDS: PHENYLEPHRINE INJ 80 MG in SODIUM CHLORIDE 0.9% 242 ML IV PRN ×2 (11:43→18:53)
[2021-08-19] MEDS: MEROPENEM 500 MG in SODIUM CHLORIDE 0.9% 100 ML IV SCH ×2 (11:46→22:56)
[2021-08-19] MEDS: PANTOPRAZOLE 40 MG VIAL IV SCH ×2 (11:46→20:12)
[2021-08-19 15:37] LABS: Osmolality,Calculated 283.4 MOS/KG (273-304); Potassium 3.5 MMOL/L (3.5-5.1)
[2021-08-19 15:46] LABS: Calcium 5.8 MG/DL (8.5-10.1)
[2021-08-19] MEDS ORDERED: CALCIUM CHLORIDE 1,000 MG/10 ML SYRINGE IV SCH (16:30)
[2021-08-19] MEDS ORDERED: CALCIUM GLUCONATE RIDER 2,000 MG/100 ML PREMIX IV ONE (16:34)
[2021-08-20 03:46] LABS: Arterial Base Excess iSTAT 0 MMOL/L (-2.5-2.5); Arterial Bicarbonate iSTAT 24.7 MMOL/L (20-26); Arterial O2 Saturation iSTAT 77 % (95-100); Arterial PCO2 iSTAT 39 MM HG (35-48); Arterial PO2 iSTAT 42 MM HG (80-95); Arterial Total CO2 iSTAT 26 MMO/L (23-27); Arterial pH iSTAT 7.405 (7.35-7.45)
[2021-08-20 03:52] LABS: Arterial Base Excess iSTAT 0 MMOL/L (-2.5-2.5); Arterial Bicarbonate iSTAT 24.6 MMOL/L (20-26); Arterial O2 Saturation iSTAT 99 % (95-100); Arterial PCO2 iSTAT 39 MM HG (35-48); Arterial PO2 iSTAT 138 MM HG (80-95); Arterial Total CO2 iSTAT 26 MMO/L (23-27); Arterial pH iSTAT 7.412 (7.35-7.45)
[2021-08-20] MEDS: SODIUM BICARB INJ 150 MEQ in STERILE WATER INJ 850 ML IV SCH ×2 (04:08→13:34)
[2021-08-20 04:38] LABS: Basophils % 0.1 % (0.0-0.8); Eosinophils % 0.1 % (0.00-10.9); Hematocrit 26.9 VOL% (42.0-52.0); Hemoglobin 8.9 GM/DL (14.0-18.0); Immature Granulocytes Absolute 0.07 #; Lymphocytes % 13.2 % (21.2-54.2); Mean Corpuscular HGB Conc 33.1 GM/DL (32-36); Mean Corpuscular Volume 88.5 FL (87-102); Mean Platelet Volume 11.2 FL (9.6-12.0); Monocytes % 0.3 % (1.7-12.7); NRBC # 0.12 10*3/uL; Neutrophils % 85.3 % (38.7-73.9); Platelet Count 66 T/CUMM (130-400); Red Blood Count 3.04 MC/CUMM (3.8-5.5); Red Cell Distribution Width 17.2 % (9.3-17.3); White Blood Count 7.3 T/CUMM (4-12)
[2021-08-20 05:05] LABS: Band Neutrophils 5 % (0-10); Hypochromia 1+; Lymphocytes 10 % (20-55); Microcytosis 1+; Myelocytes 1 %; Segmented Neutrophils 84 % (50-85); Total Cells Counted 100
[2021-08-20 05:06] LABS: Platelet Estimate Decreased
[2021-08-20 05:26] LABS: Albumin 1.5 G/DL (3.4-5.0); Bilirubin,Total 1.2 MG/DL (0.20-1.00); Osmolality,Calculated 286.3 MOS/KG (273-304); Potassium 3.5 MMOL/L (3.5-5.1); Total Protein 4.4 G/DL (6.4-8.2)
[2021-08-20 05:31] LABS: Calcium 5.8 MG/DL (8.5-10.1)
[2021-08-20] MEDS: HYDROmorphone 1 MG/1 ML SYRINGE IV PRN ×3 (05:45→16:46)
[2021-08-20] MEDS: PHENYLEPHRINE INJ 80 MG in SODIUM CHLORIDE 0.9% 242 ML IV PRN ×2 (07:15→18:49)
[2021-08-20] MEDS ORDERED: CALCIUM GLUCONATE RIDER 2,000 MG/100 ML PREMIX IV ONE (08:00)
[2021-08-20] MEDS: LACTATED RINGERS 1,000 ML IV SCH ×2 (09:13→09:57)
[2021-08-20] MEDS: MAGNESIUM OXIDE 400 MG TABLET PO SCH (09:14)
[2021-08-20] MEDS: DOCUSATE SODIUM 100 MG/10 ML UDCUP NG SCH ×2 (09:14→20:52)
[2021-08-20] MEDS: PANTOPRAZOLE 40 MG VIAL IV SCH ×2 (09:50→20:52)
[2021-08-20] MEDS: MEROPENEM 500 MG in SODIUM CHLORIDE 0.9% 100 ML IV SCH ×2 (10:01→23:45)
[2021-08-20] MEDS: SODIUM CHLORIDE 0.9% 1,000 ML IV SCH ×2 (13:43→23:29)
[2021-08-20] MEDS ORDERED: HEPARIN 10,000 UNIT/10 ML VIAL IV SCH (15:00)
[2021-08-21 03:38] LABS: Arterial Base Excess iSTAT -2 MMOL/L (-2.5-2.5); Arterial Bicarbonate iSTAT 22.4 MMOL/L (20-26); Arterial O2 Saturation iSTAT 99 % (95-100); Arterial PCO2 iSTAT 38 MM HG (35-48); Arterial PO2 iSTAT 168 MM HG (80-95); Arterial Total CO2 iSTAT 24 MMO/L (23-27); Arterial pH iSTAT 7.382 (7.35-7.45)
[2021-08-21] MEDS: HYDROmorphone 1 MG/1 ML SYRINGE IV PRN (03:53)
[2021-08-21 03:54] LABS: Basophils % 0.6 % (0.0-0.8); Eosinophils % 0.2 % (0.00-10.9); Hematocrit 27.1 VOL% (42.0-52.0); Hemoglobin 8.9 GM/DL (14.0-18.0); Immature Granulocytes % 2.3 %; Immature Granulocytes Absolute 0.15 #; Lymphocytes # 0.8 10*3/uL (1.4-4.0); Lymphocytes % 12.3 % (21.2-54.2); Mean Corpuscular HGB Conc 32.8 GM/DL (32-36); Mean Corpuscular Volume 89.7 FL (87-102); Mean Platelet Volume 11.7 FL (9.6-12.0); Monocytes % 3.4 % (1.7-12.7); Neutrophils % 81.2 % (38.7-73.9); Platelet Count 49 T/CUMM (130-400); Red Blood Count 3.02 MC/CUMM (3.8-5.5); Red Cell Distribution Width 17.6 % (9.3-17.3); White Blood Count 6.4 T/CUMM (4-12)
[2021-08-21 04:13] LABS: Band Neutrophils 3 % (0-10); Hypochromia Slight; Lymphocytes 17 % (20-55); Microcytosis 1+; Segmented Neutrophils 78 % (50-85); Total Cells Counted 100
[2021-08-21 04:14] LABS: Platelet Estimate Decreased
[2021-08-21 04:17] LABS: Albumin 1.4 G/DL (3.4-5.0); Bilirubin,Total 1.4 MG/DL (0.20-1.00); Osmolality,Calculated 282.4 MOS/KG (273-304); Potassium 3.7 MMOL/L (3.5-5.1); Total Protein 4.5 G/DL (6.4-8.2)
[2021-08-21] MEDS: PHENYLEPHRINE INJ 80 MG in SODIUM CHLORIDE 0.9% 242 ML IV PRN ×3 (05:53→17:00)
[2021-08-21] MEDS: DOCUSATE SODIUM 100 MG/10 ML UDCUP NG SCH ×2 (08:17→20:14)
[2021-08-21] MEDS: MAGNESIUM OXIDE 400 MG TABLET PO SCH (08:18)
[2021-08-21] MEDS: PANTOPRAZOLE 40 MG VIAL IV SCH ×2 (08:18→20:19)
[2021-08-21] MEDS: SODIUM CHLORIDE 0.9% 1,000 ML IV SCH ×4 (08:34→20:25)
[2021-08-21] MEDS ORDERED: CALCIUM GLUCONATE RIDER 2,000 MG/100 ML PREMIX IV ONE (14:46)
[2021-08-21] MEDS: PHENYLEPHRINE INJ 160 MG in SODIUM CHLORIDE 0.9% 234 ML IV PRN ×2 (17:00→23:10)
[2021-08-21] MEDS: MEROPENEM 500 MG in SODIUM CHLORIDE 0.9% 100 ML IV SCH (20:23)
[2021-08-22 03:08] LABS: Basophils % 0.3 % (0.0-0.8); Hematocrit 28.3 VOL% (42.0-52.0); Immature Granulocytes % 1.2 %; Immature Granulocytes Absolute 0.08 #; Lymphocytes # 1.2 10*3/uL (1.4-4.0); Lymphocytes % 17.8 % (21.2-54.2); Mean Corpuscular HGB Conc 31.8 GM/DL (32-36); Mean Corpuscular Volume 92.5 FL (87-102); Mean Platelet Volume 11.9 FL (9.6-12.0); Monocytes % 2.5 % (1.7-12.7); NRBC # 0.18 10*3/uL; Neutrophils % 78.2 % (38.7-73.9); Red Blood Count 3.06 MC/CUMM (3.8-5.5); Red Cell Distribution Width 18.3 % (9.3-17.3); White Blood Count 6.7 T/CUMM (4-12)
[2021-08-22 03:10] LABS: Platelet Count 38 T/CUMM (130-400)
[2021-08-22] MEDS ORDERED: NOREPINEPHRINE 4 MG/4 ML VIAL IV ONE (03:31)
[2021-08-22 03:32] LABS: Hypochromia Slight; Lymphocytes 5 % (20-55); Nucleated Red Blood Cells 7 (0-5); Platelet Estimate Decreased; Segmented Neutrophils 89 % (50-85); Total Cells Counted 100
[2021-08-22] MEDS: PHENYLEPHRINE INJ 160 MG in SODIUM CHLORIDE 0.9% 234 ML IV PRN ×4 (03:53→21:29)
[2021-08-22 04:07] LABS: Arterial Base Excess iSTAT -8 MMOL/L (-2.5-2.5); Arterial Bicarbonate iSTAT 18.1 MMOL/L (20-26); Arterial O2 Saturation iSTAT 99 % (95-100); Arterial PCO2 iSTAT 39 MM HG (35-48); Arterial PO2 iSTAT 131 MM HG (80-95); Arterial Total CO2 iSTAT 19 MMO/L (23-27); Arterial pH iSTAT 7.272 (7.35-7.45)
[2021-08-22] MEDS: HYDROCORTISONE 100 MG VIAL IV SCH ×3 (05:53→22:29)
[2021-08-22] MEDS: SODIUM BICARB INJ 100 MEQ in DEXTROSE 5% 1,000 ML IV SCH ×2 (05:54→15:36)
[2021-08-22 06:49] LABS: Albumin 1.5 G/DL (3.4-5.0); Bilirubin,Total 1.5 MG/DL (0.20-1.00); Calcium 6.6 MG/DL (8.5-10.1); Osmolality,Calculated 281.1 MOS/KG (273-304); Potassium 3.8 MMOL/L (3.5-5.1); Total Protein 4.7 G/DL (6.4-8.2)
[2021-08-22] MEDS: DOCUSATE SODIUM 100 MG/10 ML UDCUP NG SCH ×2 (08:22→22:24)
[2021-08-22] MEDS: MAGNESIUM OXIDE 400 MG TABLET PO SCH (08:22)
[2021-08-22] MEDS: PANTOPRAZOLE 40 MG VIAL IV SCH ×2 (08:22→22:27)
[2021-08-22] MEDS ORDERED: SODIUM CHLORIDE 0.9% 1,000 ML IV PRN (08:38)
[2021-08-22 08:54] LABS: Basophils % 0.3 % (0.0-0.8); Eosinophils % 0.2 % (0.00-10.9); Hematocrit 28.4 VOL% (42.0-52.0); Hemoglobin 8.8 GM/DL (14.0-18.0); Immature Granulocytes % 1.8 %; Immature Granulocytes Absolute 0.12 #; Lymphocytes # 0.9 10*3/uL (1.4-4.0); Lymphocytes % 13.6 % (21.2-54.2); Mean Corpuscular Volume 93.4 FL (87-102); Mean Platelet Volume 11.4 FL (9.6-12.0); Monocytes % 2.3 % (1.7-12.7); NRBC # 0.17 10*3/uL; Neutrophils % 81.8 % (38.7-73.9); Red Blood Count 3.04 MC/CUMM (3.8-5.5); Red Cell Distribution Width 18.5 % (9.3-17.3); White Blood Count 6.6 T/CUMM (4-12)
[2021-08-22 08:56] LABS: Platelet Count 34 T/CUMM (130-400)
[2021-08-22 09:16] LABS: Band Neutrophils 20 % (0-10); Lymphocytes 8 % (20-55); Metamyelocytes 2 %; Myelocytes 2 %; Segmented Neutrophils 65 % (50-85); Total Cells Counted 100
[2021-08-22 09:17] LABS: Anisocytosis 1+; Macrocytosis 1+; Platelet Estimate Decreased; Smudge Cells Few
[2021-08-22] MEDS ORDERED: ALBUMIN 25% 12.5 GM/50 ML VIAL IV ONE ×2 (10:23→10:26)
[2021-08-22] MEDS ORDERED: VANCOMYCIN INJ 2,000 MG in SODIUM CHLORIDE 0.9% 500 ML IV ONE (11:00)
[2021-08-22] MEDS ORDERED: CALCIUM GLUCONATE RIDER 2,000 MG/100 ML PREMIX IV ONE (12:09)
[2021-08-22] MEDS: ALBUTEROL/IPRATROPIUM 3 ML NEB RESP TX SCH ×2 (13:25→20:21)
[2021-08-22] MEDS: MICAFUNGIN 100 MG, MICAFUNGIN 50 MG in SODIUM CHLORIDE 0.9% 100 ML IV SCH (14:20)
[2021-08-22] MEDS ORDERED: ACETYLCYSTEINE 20% 800 MG/4 ML VIAL RESP TX SCH (15:00)
[2021-08-22] MEDS: DORNASE ALFA 2.5 MG/2.5 ML VIAL RESP TX SCH (20:21)
[2021-08-22] MEDS: MEROPENEM 500 MG in SODIUM CHLORIDE 0.9% 100 ML IV SCH (22:23)
[2021-08-23] MEDS: ALBUTEROL/IPRATROPIUM 3 ML NEB RESP TX SCH ×4 (01:15→19:28)
[2021-08-23] MEDS: SODIUM BICARB INJ 100 MEQ in DEXTROSE 5% 1,000 ML IV SCH ×2 (03:05→13:25)
[2021-08-23 04:23] LABS: Arterial Base Excess iSTAT -7 MMOL/L (-2.5-2.5); Arterial Bicarbonate iSTAT 19.2 MMOL/L (20-26); Arterial O2 Saturation iSTAT 99 % (95-100); Arterial PCO2 iSTAT 42 MM HG (35-48); Arterial PO2 iSTAT 135 MM HG (80-95); Arterial Total CO2 iSTAT 20 MMO/L (23-27); Arterial pH iSTAT 7.267 (7.35-7.45)
[2021-08-23 05:05] LABS: Basophils % 0.5 % (0.0-0.8); Hematocrit 24.5 VOL% (42.0-52.0); Hemoglobin 7.7 GM/DL (14.0-18.0); Immature Granulocytes % 0.8 %; Immature Granulocytes Absolute 0.05 #; Lymphocytes # 0.7 10*3/uL (1.4-4.0); Lymphocytes % 10.9 % (21.2-54.2); Mean Corpuscular HGB Conc 31.4 GM/DL (32-36); Mean Corpuscular Volume 93.5 FL (87-102); Mean Platelet Volume 11.2 FL (9.6-12.0); Monocytes % 1.9 % (1.7-12.7); NRBC # 0.07 10*3/uL; Neutrophils % 85.9 % (38.7-73.9); Platelet Count 51 T/CUMM (130-400); Red Blood Count 2.62 MC/CUMM (3.8-5.5); Red Cell Distribution Width 18.6 % (9.3-17.3); White Blood Count 6.2 T/CUMM (4-12)
[2021-08-23] MEDS: HYDROCORTISONE 100 MG VIAL IV SCH ×3 (05:06→21:40)
[2021-08-23 05:28] LABS: Albumin 1.9 G/DL (3.4-5.0); Bilirubin,Total 1.8 MG/DL (0.20-1.00); Calcium 6.5 MG/DL (8.5-10.1); Osmolality,Calculated 279.7 MOS/KG (273-304); Potassium 3.6 MMOL/L (3.5-5.1)
[2021-08-23 05:31] LABS: Band Neutrophils 1 % (0-10); Lymphocytes 6 % (20-55); Metamyelocytes 1 %; Segmented Neutrophils 89 % (50-85); Total Cells Counted 100
[2021-08-23 05:32] LABS: Anisocytosis 1+; Platelet Estimate Decreased; Target Cells Few
[2021-08-23] MEDS: DORNASE ALFA 2.5 MG/2.5 ML VIAL RESP TX SCH ×2 (07:13→19:28)
[2021-08-23] MEDS: DOCUSATE SODIUM 100 MG/10 ML UDCUP NG SCH ×2 (08:32→21:44)
[2021-08-23] MEDS: MAGNESIUM OXIDE 400 MG TABLET PO SCH (08:32)
[2021-08-23] MEDS: PANTOPRAZOLE 40 MG VIAL IV SCH ×2 (08:32→21:42)
[2021-08-23] MEDS: SALIVA SUBSTITUTE SPRAY 60 ML CAN SWISH/SWAL PRN ×2 (08:55→20:55)
[2021-08-23] MEDS: PHENYLEPHRINE INJ 160 MG in SODIUM CHLORIDE 0.9% 234 ML IV PRN (11:32)
[2021-08-23] MEDS ORDERED: CALCIUM GLUCONATE RIDER 2,000 MG/100 ML PREMIX IV ONE (12:30)
[2021-08-23] MEDS: MICAFUNGIN 100 MG, MICAFUNGIN 50 MG in SODIUM CHLORIDE 0.9% 100 ML IV SCH (15:37)
[2021-08-23] MEDS: MEROPENEM 500 MG in SODIUM CHLORIDE 0.9% 100 ML IV SCH (21:43)
[2021-08-24] MEDS: ALBUTEROL/IPRATROPIUM 3 ML NEB RESP TX SCH ×4 (01:45→19:04)
[2021-08-24 03:41] LABS: Arterial Base Excess iSTAT -4 MMOL/L (-2.5-2.5); Arterial Bicarbonate iSTAT 21.4 MMOL/L (20-26); Arterial O2 Saturation iSTAT 99 % (95-100); Arterial PCO2 iSTAT 41 MM HG (35-48); Arterial PO2 iSTAT 139 MM HG (80-95); Arterial Total CO2 iSTAT 23 MMO/L (23-27); Arterial pH iSTAT 7.326 (7.35-7.45)
[2021-08-24] MEDS: SODIUM BICARB INJ 100 MEQ in DEXTROSE 5% 1,000 ML IV SCH (05:02)
[2021-08-24] MEDS: HYDROCORTISONE 100 MG VIAL IV SCH ×3 (05:13→21:06)
[2021-08-24 07:00] LABS: Basophils % 0.6 % (0.0-0.8); Eosinophils % 0.1 % (0.00-10.9); Hematocrit 23.7 VOL% (42.0-52.0); Hemoglobin 7.4 GM/DL (14.0-18.0); Immature Granulocytes % 0.6 %; Immature Granulocytes Absolute 0.04 #; Lymphocytes # 0.6 10*3/uL (1.4-4.0); Lymphocytes % 8.2 % (21.2-54.2); Mean Corpuscular HGB Conc 31.2 GM/DL (32-36); Mean Corpuscular Volume 92.9 FL (87-102); Mean Platelet Volume 11.4 FL (9.6-12.0); NRBC # 0.13 10*3/uL; Neutrophils % 88.5 % (38.7-73.9); Red Blood Count 2.55 MC/CUMM (3.8-5.5); Red Cell Distribution Width 18.6 % (9.3-17.3)
[2021-08-24 07:01] LABS: Albumin 1.6 G/DL (3.4-5.0); Bilirubin,Total 2.1 MG/DL (0.20-1.00); Calcium 6.3 MG/DL (8.5-10.1); Osmolality,Calculated 284.2 MOS/KG (273-304); Potassium 3.7 MMOL/L (3.5-5.1); Total Protein 4.5 G/DL (6.4-8.2)
[2021-08-24] MEDS: DORNASE ALFA 2.5 MG/2.5 ML VIAL RESP TX SCH ×2 (07:03→19:04)
[2021-08-24] MEDS: PHENYLEPHRINE INJ 160 MG in SODIUM CHLORIDE 0.9% 234 ML IV PRN (07:24)
[2021-08-24 07:31] LABS: Platelet Count 34 T/CUMM (130-400)
[2021-08-24 07:44] LABS: Hypochromia 1+; Lymphocytes 8 % (20-55); Microcytosis 1+; Platelet Estimate Decreased; Segmented Neutrophils 91 % (50-85); Total Cells Counted 100
[2021-08-24] MEDS: DOCUSATE SODIUM 100 MG/10 ML UDCUP NG SCH ×2 (08:00→21:01)
[2021-08-24] MEDS: PANTOPRAZOLE 40 MG VIAL IV SCH ×2 (08:00→21:04)
[2021-08-24] MEDS: MAGNESIUM OXIDE 400 MG TABLET PO SCH (08:00)
[2021-08-24] MEDS ORDERED: metroNIDAZOLE INJ 500 MG/100 ML PREMIX IV SCH (09:00)
[2021-08-24] MEDS ORDERED: LEVOFLOXACIN INJ 750 MG/150 ML PREMIX IV SCH (11:00)
[2021-08-24] MEDS: MICAFUNGIN 100 MG, MICAFUNGIN 50 MG in SODIUM CHLORIDE 0.9% 100 ML IV SCH (14:07)
[2021-08-25] MEDS: ALBUTEROL/IPRATROPIUM 3 ML NEB RESP TX SCH ×3 (00:30→12:21)
[2021-08-25] MEDS: PHENYLEPHRINE INJ 160 MG in SODIUM CHLORIDE 0.9% 234 ML IV PRN (00:46)
[2021-08-25 03:39] LABS: Arterial Base Excess iSTAT 1 MMOL/L (-2.5-2.5); Arterial O2 Saturation iSTAT 99 % (95-100); Arterial PCO2 iSTAT 38 MM HG (35-48); Arterial PO2 iSTAT 125 MM HG (80-95); Arterial Total CO2 iSTAT 26 MMO/L (23-27); Arterial pH iSTAT 7.423 (7.35-7.45)
[2021-08-25] MEDS: HYDROCORTISONE 100 MG VIAL IV SCH ×2 (05:42→13:27)
[2021-08-25 05:49] LABS: Basophils # 0.1 10*3/uL (0.0-0.2); Basophils % 0.7 % (0.0-0.8); Hemoglobin 7.2 GM/DL (14.0-18.0); Immature Granulocytes % 1.2 %; Immature Granulocytes Absolute 0.11 #; Lymphocytes # 0.5 10*3/uL (1.4-4.0); Lymphocytes % 5.2 % (21.2-54.2); Mean Corpuscular HGB Conc 34.3 GM/DL (32-36); Mean Platelet Volume 10.2 FL (9.6-12.0); Monocytes % 1.8 % (1.7-12.7); NRBC # 0.08 10*3/uL; Neutrophils % 91.1 % (38.7-73.9); Red Blood Count 2.47 MC/CUMM (3.8-5.5); Red Cell Distribution Width 17.4 % (9.3-17.3); White Blood Count 8.9 T/CUMM (4-12)
[2021-08-25 05:55] LABS: Platelet Count 24 T/CUMM (130-400)
[2021-08-25 06:04] LABS: Albumin 1.7 G/DL (3.4-5.0); Bilirubin,Total 2.1 MG/DL (0.20-1.00); Calcium 6.4 MG/DL (8.5-10.1); Potassium 3.9 MMOL/L (3.5-5.1); Total Protein 4.8 G/DL (6.4-8.2)
[2021-08-25 06:05] LABS: Band Neutrophils 6 % (0-10); Lymphocytes 2 % (20-55); Segmented Neutrophils 88 % (50-85); Total Cells Counted 100
[2021-08-25 06:06] LABS: Hypochromia 1+; Microcytosis 1+; Target Cells Slight
[2021-08-25 06:07] LABS: Ovalocytes Slight; Platelet Estimate Decreased
[2021-08-25] MEDS ORDERED: SODIUM CHLORIDE 0.9% 1,000 ML IV PRN (06:15)
[2021-08-25] MEDS: DORNASE ALFA 2.5 MG/2.5 ML VIAL RESP TX SCH (07:05)
[2021-08-25] MEDS: DOCUSATE SODIUM 100 MG/10 ML UDCUP NG SCH (08:52)
[2021-08-25] MEDS: MAGNESIUM OXIDE 400 MG TABLET PO SCH (08:52)
[2021-08-25] MEDS: PANTOPRAZOLE 40 MG VIAL IV SCH (08:53)
[2021-08-25] MEDS: INSULIN REGULAR 100 UNIT/ML SUBCUT SCH ×2 (10:08→15:08)
[2021-08-25 10:53] VITALS: BP 128/80
== END 2021-08-25 15:49 | disposition expired | DRG 414 ==
LOC: SUPCPDRO → N.EDINP 19:42 → N.ED 19:42 → SUATTDRO 08-09 03:14 → N.3E 08-09 10:09 → SUATTDRO 08-11 14:42 → N.ICU 08-17 23:28
PROVIDERS: ADMIT Internal Medicine; ATTEND Internal Medicine
PROC: ERCPWSP (ICD-10-PCS; 2021-08-14 11:05)
PROC: LAPCHOL (2021-08-17 12:09)